=== PATIENT | male | born 1980 | race Caucasian/White ===

== ENCOUNTER 2016-07-13 19:08 | Emergency (ER) | payer BC ==
[~2016-07-13 19:08] MED LIST: BACTRIM DS TABL1 TA1 PO; IBUPROFEN800 MG PO; NO MEDICATIONS; NORCO1 TAB 10/3 PO; VOLTAREN75 MG PO
== END 2016-07-13 19:22 | disposition home or self-care (01) ==
LOC: SED 19:08
DX: H16.9 Unspecified keratitis (principal)
CPT/HCPCS: 99282